=== PATIENT | male | born 1990 | race Hispanic/Latino ===

== ENCOUNTER 2021-09-05 15:00 | Emergency (ER) | payer SELFPAY ==
[~2021-09-05] VITALS: Ht 170.2 cm; Wt 70.0 kg
[2021-09-05 17:09] VITALS: BP 129/84
[2021-09-05 17:30] VITALS: BP 142/78
[2021-09-05] MEDS ORDERED: KEFLEX500 MG PO ×2 (18:09→18:25)
[2021-09-05] MEDS ORDERED: NAPROXEN500 MG PO ×2 (18:09→18:25)
[2021-09-05 18:30] VITALS: BP 129/86
[2021-09-05 18:38] VITALS: BP 129/86
[2021-09-06] MEDS ORDERED: AMOXICILLIN500 MG PO (08:35)
== END 2021-09-05 19:06 | disposition home or self-care (01) | DRG 914 ==
LOC: ED 15:00
DX: S61.522A Laceration with foreign body of left wrist, initial encounter (principal); W25.XXXA Contact with sharp glass, initial encounter; Y92.009 Unspecified place in unspecified non-institutional (private) residence as the place of occurrence of the external cause

== ENCOUNTER 2021-09-06 07:39 | Emergency (ER) | payer SELFPAY ==
[~2021-09-06] VITALS: Ht 170.2 cm; Wt 75.0 kg
[~2021-09-06 07:39] MED LIST: KEFLEX500 MG PO; NAPROXEN500 MG PO
[2021-09-06] MEDS ORDERED: AMOXICILLIN500 MG PO (08:35)
[2021-09-06 08:40] VITALS: BP 140/65
== END 2021-09-06 08:55 | disposition home or self-care (01) | DRG 950 ==
LOC: ED 07:39
PROC: 0HQEXZZ Repair Left Lower Arm Skin, External Approach (ICD-10-PCS; principal; 2021-09-06)
DX: S61.512D Laceration without foreign body of left wrist, subsequent encounter (principal); X58.XXXD Exposure to other specified factors, subsequent encounter